=== PATIENT | female | born 1970 | race Caucasian/White ===

== ENCOUNTER → 2017-06-13 | Outpatient (CLI) | payer OTHER | LOC: LAB 16:58 | PROVIDERS: Nurse Practitioner Family | DX: Z12.4 Encounter for screening for malignant neoplasm of cervix (principal) | CPT/HCPCS: G0123 ==

== ENCOUNTER 2019-02-20 06:41 | Day surgery (SDC) | payer OTHER ==
[~2019-02-20] VITALS: Ht 162.6 cm; Wt 58.2 kg
[~2019-02-20 06:41] MED LIST: ALLEGRA ALLERGY60 MG; EUTHYROX50 MCG; FLUO10
== END 2019-02-20 08:53 | disposition home or self-care (01) ==
LOC: ORSCSDS 06:41
PROVIDERS: Internal Medicine Gastroenterology
PROC: 0DBL8ZX Excision of Transverse Colon, Via Natural or Artificial Opening Endoscopic, Diagnostic (ICD-10-PCS; principal; 2019-02-20 08:00)
DX: Z12.11 Encounter for screening for malignant neoplasm of colon (principal); K63.5 Polyp of colon; K57.30 Diverticulosis of large intestine without perforation or abscess without bleeding; K64.8 Other hemorrhoids; F32.9 Major depressive disorder, single episode, unspecified; E03.9 Hypothyroidism, unspecified; Z79.899 Other long term (current) drug therapy
CPT/HCPCS: 88305; J0330; J2405; J2704; J7120

== ENCOUNTER 2020-10-04 11:40 | Day surgery (SDC) | payer OTHER ==
[~2020-10-04] VITALS: Ht 162.6 cm; Wt 63.8 kg
--- NOTE | 2020-10-04 14:32 | NUR ---
10/04/20 1432 Kaylah Nichols LMA REMOVED AT 1405, PT TOLERATED WITHOUT DIFFICULTY.
--- NOTE | 2020-10-04 15:01 | NUR ---
10/04/20 1501 Rosette Shultz BUPIVACAINE 0.5% 30ML MIXED WITH 0.15MG EPI TO CONSTITUTE BUPIVACAINE 0.5% W/EPI 1:200,000
== END 2020-10-04 15:10 | disposition home or self-care (01) ==
LOC: ORSCSDS 11:40
PROVIDERS: Podiatrist Foot & Ankle Surgery
PROC: 0QSP04Z Reposition Left Metatarsal with Internal Fixation Device, Open Approach (ICD-10-PCS; principal; 2020-10-04 13:15)
DX: S92.355A Nondisplaced fracture of fifth metatarsal bone, left foot, initial encounter for closed fracture (principal); E03.9 Hypothyroidism, unspecified; Z79.899 Other long term (current) drug therapy
CPT/HCPCS: A9270; C1713; J0171; J0690; J1100; J2250; J2405; J2704; J2765; J3010; J7120